=== PATIENT | male | born 1995 | race Hispanic/Latino ===

== ENCOUNTER 2017-09-16 22:22 | Emergency (ER) | payer OTHER ==
[2017-09-16] MEDS ORDERED: Adacel (T-DAP) 0.5 ML VIAL ONE (22:42)
[2017-09-16] MEDS ORDERED: HYDROcodone/Acetaminophen 10/325 mg Tablet ONE (22:44)
--- NOTE | 2017-09-16 23:05 | RAD ---
TWO VIEWS RIGHT FOREARM: History: Crush injury to right forearm. FINDINGS: AP and lateral views obtained. Some soft tissue edema possibly representing hematoma seen along the aspect of the right forearm. No definite evidence of osseous abnormality is seen. IMPRESSION: No definite evidence of right radial or ulnar fractures. POS: [facility]
== END 2017-09-16 23:18 | disposition home or self-care (01) ==
LOC: NAV ERS 22:22
DX: S50.11XA Contusion of right forearm, initial encounter (principal); Z23 Encounter for immunization; W23.0XXA Caught, crushed, jammed, or pinched between moving objects, initial encounter
CPT/HCPCS: 90471; 90715

== ENCOUNTER 2021-03-18 09:32 | Emergency (ER) | payer SELFPAY ==
[~2021-03-18 09:32] MED LIST: Iopamidol 370 76% 100 ML VIAL ONE
[2021-03-18] MEDS ORDERED: Acetaminophen 500 MG TAB ONE (09:40)
[2021-03-18] MEDS ORDERED: Sodium Chloride 0.9% 1,000 ML ONE (10:08)
[2021-03-18 10:34] LABS: #Lymphocytes 1.2 thou/uL (1.20-3.40); #Monocytes 0.4 thou/uL (0.11-0.59); #Neutrophils 6.5 thou/uL (1.40-6.50); %Basophils 0.4 % (0.0-1.0); %Monocytes 4.4 % (0.0-10.0); %Neutrophils 80.1 % (42.0-75.0); Hemoglobin 14.1 g/dL (14.0-18.0); Mean Corpuscular HGB CONC 30.5 g/dL (32.0-36.0); Mean Corpuscular Hemoglobin 24.9 pg (27.0-31.0); Mean Corpuscular Volume 81.7 fL (78.0-98.0); Mean Platelet Volume 8.1 fL (7.4-10.4); Platelet Count 235 thou/uL (130-400); RBC Distribution Width 13.3 % (11.5-14.5); Red Blood Cell (RBC) Count 5.64 mill/uL (4.70-6.10); White Blood Cell (WBC) Count 8.2 thou/uL (4.8-10.8)
[2021-03-18 10:46] LABS: ALT (SGPT) 18 U/L (8-55); AST (SGOT) 23 U/L (5-34); Albumin 3.8 g/dL (3.5-5.0); Alkaline Phosphatase 58 U/L (40-110); Anion Gap 15 mmol/L (10-20); BUN (Urea Nitrogen) 12 mg/dL (8.9-20.6); Bilirubin, Total 0.6 mg/dL (0.2-1.2); Calc. Creatinine Clearance 0 mL/min (70-130); Calcium 8.3 mg/dL (7.8-10.44); Carbon Dioxide 23 mmol/L (22-29); Chloride 102 mmol/L (98-107); Globulin 3.5 g/dL (2.4-3.5); Glucose 109 mg/dL (70-105); Potassium 4.1 mmol/L (3.5-5.1); Protein, Total 7.3 g/dL (6.0-8.3); Sodium 136 mmol/L (136-145)
[2021-03-18] MEDS ORDERED: Dexamethasone 4 mg/ml Vial ONE (11:58)
[2021-03-18 20:51] LABS: SARS-CoV-2 PCR by NAA DETECTED (NotDetected)
== END 2021-03-18 12:17 | disposition home or self-care (01) ==
LOC: NAV ERS 09:32
DX: U07.1 COVID-19 (principal); J12.82 Pneumonia due to coronavirus disease 2019
CPT/HCPCS: 71045; 71275; 80053; 83605; 84484; 85025; 85379; 87635; 87804; 96374; J1100; J7050; Q9967; U0003; U0005

== ENCOUNTER 2021-03-19 10:56 | Emergency (ER) | payer SELFPAY ==
[2021-03-19] MEDS ORDERED: Ibuprofen 200 MG TAB ONE (11:27)
[2021-03-19] MEDS ORDERED: Sodium Chloride 0.9% 1,000 ML ONE (11:27)
[2021-03-19 12:03] LABS: Bilirubin Small (Negative); Blood, Urine Moderate (Negative); Glucose, Urine (Dipstick) Negative (Negative); Ketone, Urine Negative (Negative); Leukocyte Negative (Negative); Nitrite Negative (Negative); Protein, Urine (Dipstick) > or equal to 300 mg/dL (Neg-Trace); Specific Gravity, Urine 1.025 (1.005-1.030); pH, Urine 5.5 (5.0-9.0)
[2021-03-19 12:12] LABS: #Basophils 0.1 thou/uL (0.0-0.2); #Lymphocytes 0.8 thou/uL (1.20-3.40); #Monocytes 0.3 thou/uL (0.11-0.59); #Neutrophils 6.6 thou/uL (1.40-6.50); %Lymphocytes 10.2 % (21.0-51.0); %Monocytes 3.2 % (0.0-10.0); %Neutrophils 85.6 % (42.0-75.0); ALT (SGPT) 33 U/L (8-55); AST (SGOT) 42 U/L (5-34); Albumin 3.8 g/dL (3.5-5.0); Alkaline Phosphatase 64 U/L (40-110); Anion Gap 17 mmol/L (10-20); BUN (Urea Nitrogen) 13 mg/dL (8.9-20.6); Bilirubin, Total 0.4 mg/dL (0.2-1.2); Calc. Creatinine Clearance 0 mL/min (70-130); Carbon Dioxide 21 mmol/L (22-29); Chloride 105 mmol/L (98-107); Globulin 3.2 g/dL (2.4-3.5); Glucose 125 mg/dL (70-105); Hemoglobin 13.6 g/dL (14.0-18.0); Mean Corpuscular HGB CONC 29.1 g/dL (32.0-36.0); Mean Corpuscular Hemoglobin 24.4 pg (27.0-31.0); Mean Corpuscular Volume 83.8 fL (78.0-98.0); Mean Platelet Volume 7.6 fL (7.4-10.4); Platelet Count 234 thou/uL (130-400); Potassium 4.5 mmol/L (3.5-5.1); RBC Distribution Width 13.7 % (11.5-14.5); Red Blood Cell (RBC) Count 5.58 mill/uL (4.70-6.10); Sodium 138 mmol/L (136-145); White Blood Cell (WBC) Count 7.7 thou/uL (4.8-10.8)
[2021-03-19 12:14] LABS: Clarity Hazy (Clear)
[2021-03-19 12:24] LABS: RBC/HPF 0-3 HPF (0-3); Squamous Epithelial 0-3 HPF (0-3); WBC/HPF 0-3 HPF (0-3)
[2021-03-19] MEDS ORDERED: Dexamethasone 4 mg/ml Vial ONE (12:29)
[2021-03-19] MEDS ORDERED: Enoxaparin Sodium 100 MG/ML SYRINGE ONE (13:06)
== END 2021-03-19 13:31 | disposition short-term general hospital (02) ==
LOC: NAV ERS 10:56
DX: U07.1 COVID-19 (principal); J12.82 Pneumonia due to coronavirus disease 2019; R09.02 Hypoxemia
CPT/HCPCS: 71045; 80053; 81003; 81015; 83605; 83880; 84484; 85025; 85379; 93005; 94760; 96372; 96374; J1100; J1650; J7050